=== PATIENT | female | born 1970 | race American Indian/Alaskan Native ===

== ENCOUNTER 2017-02-07 21:54 | Emergency (ER) | payer OTHER ==
[2017-02-07 22:03] VITALS: BP 146/95
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
[2017-02-08] MEDS ORDERED: NORCO 5/325 PO ONE (00:29)
[2017-02-08] MEDS ORDERED: VALIUM PO ONE (00:29)
== END 2017-02-08 02:40 | disposition home or self-care (01) ==
LOC: ED 21:54
DX: M62.838 Other muscle spasm (principal); M25.50 Pain in unspecified joint; M54.2 Cervicalgia; Z88.1 Allergy status to other antibiotic agents; Z88.8 Allergy status to other drugs, medicaments and biological substances; V43.52XA Car driver injured in collision with other type car in traffic accident, initial encounter; Y93.9 Activity, unspecified; Y99.9 Unspecified external cause status; Y92.410 Unspecified street and highway as the place of occurrence of the external cause
CPT/HCPCS: 99284

== ENCOUNTER 2017-06-25 07:27 | Emergency (ER) | payer SELFPAY ==
[2017-06-25 07:35] VITALS: BP 135/88
[2017-06-25] MEDS ORDERED: TETRACAINE 0.5% OU PRN (07:55)
[2017-06-25] MEDS ORDERED: FUL-GLO OP ONE (07:55)
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
== END 2017-06-25 09:10 | disposition home or self-care (01) ==
LOC: ED 07:27
DX: S05.01XA Injury of conjunctiva and corneal abrasion without foreign body, right eye, initial encounter (principal); X58.XXXA Exposure to other specified factors, initial encounter; Y93.89 Activity, other specified; Y92.89 Other specified places as the place of occurrence of the external cause; Y99.8 Other external cause status
CPT/HCPCS: 99283

== ENCOUNTER 2017-11-14 10:45 | Emergency (ER) | payer SELFPAY ==
[2017-11-14 11:01] VITALS: BP 145/93
--- NOTE | 2017-11-14 11:27 | Emergency Department Report ---
ED General Adult HPI - General Chief complaint: Extremity Injury, Lower Stated complaint: LEFT LEG INFECTION Time Seen by Provider: 11/14/17 11:18 Source: patient Mode of arrival: Ambulatory Limitations: No Limitations - History of Present Illness Initial comments: Patient is 47 years old female with no significant past medical history. Patient presented to the ER complaining of left fifth toe injury 3 weeks ago. Patient stated that she did not take any medicine and she was told that even if it's broken just need to do taping on it. Patient is also complaining of an wound to left lower leg that started approximately 2 weeks ago as insect bites and she has been putting iodine and cleaning it but is not healing. Patient denied any fever, nausea or vomiting. - Related Data Previous Rx's Medication Instructions Recorded Last Taken Type Cyclobenzaprine [Flexeril] 10 mg PO TID PRN 5 Days #15 tablet 02/08/17 Unknown Rx Ibuprofen [Motrin] 600 mg PO Q8H PRN 5 Days #15 tablet 02/08/17 Unknown Rx Ciprofloxacin 0.3% (Nf) 2 drops OD TID #1 drops 06/25/17 Unknown Rx [Ciprofloxacin OPTH] Cyclopentolate HCl [Cyclogyl 1%] 1 drop OD BID #1 drops 06/25/17 Unknown Rx Allergies Allergy/AdvReac Type Severity Reaction Status Date / Time fluconazole [From Diflucan] Allergy Rash Verified 02/07/17 22:12 metronidazole [From Flagyl] Allergy Rash Verified 02/07/17 22:12 ED Review of Systems ROS: Stated complaint: LEFT LEG INFECTION Other details as noted in HPI Comment: All other systems reviewed and negative Constitutional: denies: chills, fever Respiratory: denies: shortness of breath Cardiovascular: denies: chest pain Gastrointestinal: denies: abdominal pain, nausea, vomiting ED Past Medical Hx - Past Medical History Previous Medical History?: No Additional medical history: over weight - Surgical History Past Surgical History?: Yes Additional Surgical History: Hyst, Rt Hand - Social History Smoking Status: Never Smoker Substance Use Type: None - Medications Home Medications: Home Medications Medication Instructions Recorded Confirmed Last Taken Type Cyclobenzaprine [Flexeril] 10 mg PO TID PRN 5 Days #15 tablet 02/08/17 Unknown Rx Ibuprofen [Motrin] 600 mg PO Q8H PRN 5 Days #15 tablet 11/24/17 Unknown Rx Ciprofloxacin 0.3% (Nf) 2 drops OD TID #1 drops 06/25/17 Unknown Rx [Ciprofloxacin OPTH] Cyclopentolate HCl [Cyclogyl 1%] 1 drop OD BID #1 drops 06/25/17 Unknown Rx ED Physical Exam - General Limitations: No Limitations General appearance: alert, in no apparent distress - Head Head exam: Present: atraumatic, normocephalic, normal inspection - ENT ENT exam: Present: normal exam, normal orophraynx, mucous membranes moist - Neck Neck exam: Present: normal inspection, full ROM. Absent: tenderness, meningismus, lymphadenopathy, thyromegaly - Respiratory Respiratory exam: Present: normal lung sounds bilaterally - Cardiovascular Cardiovascular Exam: Present: regular rate, normal rhythm, normal heart sounds - GI/Abdominal GI/Abdominal exam: Present: soft. Absent: distended, tenderness, guarding, rebound, rigid - Extremities Exam Extremities exam: Present: other (left fifth toe tenderness. Left leg with ulcer with greenish discharge to the left lower leg.) - Back Exam Back exam: Present: normal inspection, full ROM - Neurological Exam Neurological exam: Present: alert, oriented X3, CN II-XII intact, normal gait, reflexes normal - Skin Skin exam: Present: warm, intact, normal color ED Course Vital Signs 11/14/17 10:58 Temperature 99.0 F Pulse Rate 94 H Respiratory 18 Rate Blood Pressure 145/93 O2 Sat by Pulse 100 Oximetry ED Medical Decision Making - Radiology Data Radiology results: report reviewed Referring Physician: DIANA ALVARENGA Patient Name: SRINIVASA HANSEN Date of : 1970 Sex: Female Report Date: 2017-11-14 Report Status: Finalized Findings [facility] [address] [place] [address] XRay Report Signed Patient: SRINIVASA HANSEN MR#: [id number] : 1970 Acct:[id number] Age/Sex: 47 / F ADM Date: 11/14/17 Loc: ED Attending Dr: Ordering Physician: DIANA ALVARENGA Date of Service: 11/14/17 Procedure(s): XR toe(s) 2+V LT Accession Number(s): [id number] cc: DIANA Fraire Time In Minutes: LEFT TOES, 3 VIEWS History: Left fifth toe injury. Findings: Osteopenia is evident. A subtle nondisplaced fracture is suspected in the proximal phalanx of the fifth toe. No calcified callus is identified. The remaining left toes are intact. No erosive joint pathology. Impression: Fracture, proximal phalanx, fifth toe. Transcribed By: TTR Dictated By: KAREN FLOWERS JR, MD Electronically Authenticated By: KAREN FLOWERS JR, MD Signed Date/Time: 11/14/171207 DD/ 06 TD/TT: 11/14/171207 Critical care attestation.: If time is entered above; I have spent that time in minutes in the direct care of this critically ill patient, excluding procedure time. ED Disposition Clinical Impression: Left leg cellulitis, Toe fracture, left Disposition: DC-01 TO HOME OR SELFCARE Is pt being admited?: No Condition: Stable Instructions: Cellulitis (ED), Toe Fracture (ED) Referrals: SHIV PINEDO MD [Staff Physician] - 3-5 Days
--- NOTE | 2017-11-14 12:09 | XRay Report ---
LEFT TOES, 3 VIEWS History: Left fifth toe injury. Findings: Osteopenia is evident. A subtle nondisplaced fracture is suspected in the proximal phalanx of the fifth toe. No calcified callus is identified. The remaining left toes are intact. No erosive joint pathology. Impression: Fracture, proximal phalanx, fifth toe.
== END 2017-11-14 12:28 | disposition home or self-care (01) ==
LOC: ED 10:45
DX: S92.515A Nondisplaced fracture of proximal phalanx of left lesser toe(s), initial encounter for closed fracture (principal); L03.116 Cellulitis of left lower limb; Z88.8 Allergy status to other drugs, medicaments and biological substances; X58.XXXA Exposure to other specified factors, initial encounter; Y93.89 Activity, other specified; Y92.89 Other specified places as the place of occurrence of the external cause; Y99.8 Other external cause status
CPT/HCPCS: 99283